=== PATIENT | male | born 1970 | race Caucasian/White ===

== ENCOUNTER 2021-04-10 21:58 | Emergency (ER) | payer MEDICARE, MEDICAID, SELFPAY ==
[2021-04-10 21:59] VITALS: BP 136/99; PULSE 80; RESP 16; TEMP 36.7; O2SAT 97; BMI 41.0
[2021-04-10 22:03] VITALS: BP 136/99; PULSE 77; RESP 16; O2SAT 97
--- NOTE | 2021-04-10 22:35 | RAD_ITS ---
STUDY: X-RAY - PELVIS AND LEFT HIP REASON FOR EXAM: Male, 50 years old. Pain TECHNIQUE: 3 views of the pelvis and hip. COMPARISON: None. FINDINGS: There is a non-specific bowel gas pattern. Normal visualized soft tissue structures. Normal bilateral iliac wings, sacroiliac joints and visualized sacrum. Normal bilateral superior and inferior pubic rami. Normal pubic symphysis. Normal bilateral ischial tuberosities. Normal visualized femoral head. Normal acetabulum. Normal hip joint. RAD/HIP, UNI W/ Pelvis 2-3 Views IMPRESSION: Normal x-ray examination of the pelvis and hip. Electronically Signed: Clifton Lu DO at 22:51 EST Tel , Service support ,
--- NOTE | 2021-04-10 23:00 | EKG12_ITS ---
Test Reason : DYSRHYTHMIA Blood Pressure : / mmHG Vent. Rate : 075 BPM Atrial Rate : 075 BPM P-R Int : 170 ms QRS Dur : 130 ms QT Int : 412 ms P-R-T Axes : 034 -84 078 degrees QTc Int : 460 ms Atrial-sensed ventricular-paced rhythm Biventricular pacemaker detected Abnormal ECG Confirmed by MARY KAY URIARTE, TREVIN ([id number]), map editor YULISA JERONIMO ([id number]) on 04/12/2021 10:17:33 AM Referred By: JOSH Confirmed By:TREVIN MUÑIZ MD
--- NOTE | 2021-04-10 23:00 | CT_ITS ---
STUDY: CT BRAIN WITHOUT CONTRAST REASON FOR EXAM: Male, 50 years old. trauma RADIATION DOSAGE (If Supplied By Facility): CTDIvol = ( 44.99 ) mGy, DLP = ( 914.22 ) mGycm TECHNIQUE: Transaxial CT imaging of the brain was performed without administration of intravenous contrast material. Individualized dose optimization techniques were used for this CT. COMPARISON: No relevant priors. FINDINGS: Normal soft tissue structures. Normal calvarium. Normal size ventricles and extra-axial spaces for the patient''s age. Normal white matter tracts of the cerebral hemispheres. Normal basal ganglia and thalami. Normal brainstem. Normal cerebellum. There is no intracranial hemorrhage. There are no findings of an acute ischemic infarction. Normal visualized paranasal sinuses. Posterior fossa arachnoid cyst CT/Brain/Head without Contrast IMPRESSION: Normal unenhanced CT scan of the brain. Posterior fossa arachnoid cyst Electronically Signed: Clifton Lu DO at 0:00 EST Tel , Service support ,
--- NOTE | 2021-04-10 23:00 | CT_ITS ---
STUDY: CT CERVICAL SPINE WITHOUT CONTRAST REASON FOR EXAM: Male, 50 years old. neck pain RADIATION DOSAGE (If Supplied By Facility): CTDIvol = ( 31.01 ) mGy, DLP = ( 602.12 ) mGycm TECHNIQUE: High resolution transaxial imaging was performed without contrast material. Sagittal and coronal images were reconstructed. Individualized dose optimization techniques were used for this CT. COMPARISON: None FINDINGS: Normal craniovertebral junction. Normal anterior atlantoaxial articulation. Normal odontoid process. Normal cervical lordosis. Normal vertebral bodies and posterior osseous elements. No acute fracture or listhesis. [id number] multilevel degenerative disease. No critical stenosis Normal visualized soft tissue structures. CT/Spine Cervical without Contras IMPRESSION: Multilevel degenerative changes, as described above. Electronically Signed: Clifton Lu DO at 0:01 EST Tel , Service support ,
--- NOTE | 2021-04-10 23:00 | RAD_ITS ---
STUDY: X-RAY CHEST REASON FOR EXAM: Male, 50 years old. chest pain TECHNIQUE: Single AP portable view of the chest. COMPARISON: None. FINDINGS: Left chest wall pacer device The lungs are clear and expanded. There is no demonstrated pleural abnormality. Normal size heart. Normal mediastinum and clive. Normal visualized pulmonary arteries. Normal visualized aortic arch and descending thoracic aorta. Normal visualized thoracic spine. Normal visualized ribs, clavicles, and shoulders. There is no demonstrated abnormality of the visualized soft tissue structures of the upper abdomen. RAD/Chest 1 View (Portable) IMPRESSION: Normal x-ray examination of the chest. Electronically Signed: Clifton Lu DO at 23:58 EST Tel , Service support ,
[2021-04-10 23:37] LABS: Absolute Lymphocyte Count 1.18 X10^3/uL (0.83-4.51); Basophil# 0.03 X10^3/uL; Basophil% 0.5 % (0-1); Eosinophil# 0.29 X10^3/uL; Eosinophils% 4.7 % (0-5); Hematocrit 37.5 % (40-54); Hemoglobin 12.4 g/dL (13.0-16.5); Lymphocyte # 1.18 X10^3/ul (0.83-4.51); Mean Corp Hgb Conc 33.1 g/dL (32-36); Mean Corpuscular Hgb 27.3 pg (27.0-32.0); Mean Corpuscular Volume 82.4 fL (80-94); Mean Platelet Vol. 11.3 fl (6.2-12.0); Monocyte# 0.62 X10^3/uL; NRBC Flagged by Analyzer 0 % (0-5); Neutrophil # 4.01 X10^3/uL (2.7-7.7); Neutrophil % 64.7 % (47-70); Platelet Count 152 K/mm3 (150-450); RBC Distribution Width CV 12.6 % (11.6-14.6); Red Blood Count 4.55 M/mm3 (4.6-6.2); White Blood Count 6.2 K/mm3 (4.4-11.0)
[2021-04-10 23:57] LABS: Anion Gap 7 (5-15); BUN 21 mg/dL (7-18); BUN/Creat Ratio 17.8 RATIO (10-20); Calcium,Total 9.5 mg/dL (8.5-10.1); Chloride 103 mmol/L (98-107); Creatinine, Serum 1.18 mg/dL (0.70-1.30); EST Glomerular Filtration Rate 69 mL/min (>60); Est Glom Filt Rate - Afr Amer 83 mL/min (>60); Estimated Creatinine Clearance 74.06 ml/min; Glucose 151 mg/dL (74-106); Potassium 4.1 mmol/L (3.5-5.1); Sodium Level 137 mmol/L (136-145); Troponin-I HS 82 pg/mL (3.0-78.0)
--- NOTE | 2021-04-11 01:03 | EX.ED.DYSGE1 ---
HPI History of Present Illness Chief Complaint: Fall Narrative Narrative: 50-year-old male presenting after a mechanical fall. He states that he was trying to move some furniture and while moving it fell backwards onto his right hip and states that he injured his right hip. Since that time he developed chest pain which was 10 of 10 and felt like pressure and is now come down to a 5 of 10. He does not want anything for pain. Patient is describing neck discomfort as well as paresthesias into the upper and lower extremity on the left arm and leg. He states this is new since he fell. He denies hitting his head. The only thing that he hit was his right hip. Patient was otherwise well prior to this. He does not have dyspnea. He is not had a fever or chills. He does not have a headache. PFSH PFSH Medical History Atrial fibrillation COPD (chronic obstructive pulmonary disease) Diabetes Hyperlipidemia Hypertension Pacemaker Seizures Smoker Home Medications aspirin 81 mg PO DAILY 04/10/21 [History Last Taken Unknown] insulin degludec [Tresiba FlexTouch U-100] 64 unit SUBCUT BID 04/10/21 [History Last Taken Unknown] levetiracetam 500 mg PO DAILY 04/10/21 [History Last Taken Unknown] lisinopril 10 mg PO DAILY 04/10/21 [History Last Taken Unknown] metformin 500 mg PO DAILY 04/10/21 [History Last Taken Unknown] metoprolol tartrate 25 mg PO DAILY 04/10/21 [History Last Taken Unknown] mexiletine 300 mg PO Q8H 04/10/21 [History Last Taken Unknown] omeprazole 20 mg PO DAILY 04/10/21 [History Last Taken Unknown] rosuvastatin 40 mg PO DAILY 04/10/21 [History Last Taken Unknown] Allergy/AdvReac Type Severity Reaction Status Date / Time No Known Allergies Allergy Verified 04/10/21 22:09 Surgical History History of cochlear implant History of orthopedic surgery Social History Smoking Status: Current every day smoker tobacco type: cigarettes ROS ROS ED Constitutional Constitutional ED: Denies chills or fever(s) Eyes Eyes: Denies blurry vision or diplopia ENT ENT ED: Denies rhinorrhea or sore throat Cardiovascular Cardiovascular: Denies chest pain or palpitations Respiratory/Chest Respiratory/Chest: Denies cough, dyspnea or sputum Gastrointestinal Gastrointestinal: Denies abdominal pain, nausea or vomiting Genitourinary Genitourinary ED: Denies dysuria or hematuria Musculoskeletal Musculoskeletal: Reports neck pain and other Details: Right hip pain Neurologic Neurologic: Reports paresthesias LUE and LLE Psychiatric Psychiatric: Denies anxiety or depression EXAM Physical Exam Const Vital Signs: 04/10/21 21:59 04/10/21 22:03 04/10/21 23:22 Temperature 98.0 F Temperature Source Temporal Pulse Rate 80 77 Respiratory Rate 16 16 Respiratory Effort Normal Respiratory Depth Normal Respiratory Pattern Normal Blood Pressure 136/99 H 136/99 H Blood Pressure Mean 111 111 Pulse Ox 97 97 Oxygen Delivery Method Room Air Room Air Room Air Positive well nourished General Appearance ED: NAD HEENT Reports moist mucous membranes Negative for trauma Eyes PERRL and EOMs intact bilaterally Neck Neck Narrative: Tenderness to palpation the left cervical paraspinal musculature. No midline spinal deformity or step-off. Resp normal respiratory effort and clear to auscultation bilaterally Cardio regular rate and regular rhythm GI normal to inspection, nondistended, normoactive bowel sounds Extremity Extremity Narrative: Tenderness to palpation over right hip Neuro oriented x3 and CN's II-XII intact bilaterally Neuro Narrative: Decreased sensation to light touch in the left upper and left lower extremity diffusely. No injuries noted. No bony tenderness. No bruising. Sensorium / Orientation: alert Psych mental status grossly normal Skin no rashes or lesions noted and no wounds MDM MDM MDM Narrative Medical decision making narrative: Patient initially presenting for for a fall which is mechanical injuring his right hip. X-ray of the right hip on my interpretation shows no acute fracture or subluxation. Patient now complaining of chest pressure as well as paresthesias in the left upper and left lower extremity. He denies any head injury. He states the only part of his body that hit the ground was his right hip. He does describe some left paraspinal musculature pain. He has no midline spinal deformities or step-offs. He has no signs of head trauma. Patient is able to pull himself forward with the left arm to allow me to auscultate his lungs. He is able to lift his left leg off the bed as well. I did obtain a CT of the brain which is negative for acute findings but does show an arachnoid cyst. CT of the cervical spine shows degenerative changes but no acute fractures. Chest x-ray my interpretation shows no acute cardiopulmonary process. Patient CBC shows his white blood count of 6.2, hemoglobin 12.4, hematocrit 37.5, platelets 152. Renal function is normal. Electrolytes are normal. High-sensitivity troponin initially is 82. EKG on my interpretation is a atrial sensed ventricular paced rhythm with a ventricular to 75 bpm. There are no signs of ischemic changes. Delta troponin is 94 and therefore not significantly changed. I feel at this point the patient is stable to be discharged home. Impression: 1. Chemical fall 2. Right hip contusion 3. Chest pain noncardiac 4. Paresthesia Lab Data Labs: Laboratory Results - last 24 hr 04/10/21 04/10/21 04/11/21 23:19 23:19 01:20 WBC 6.2 RBC 4.55 L Hgb 12.4 L Hct 37.5 L MCV 82.4 MCH 27.3 MCHC 33.1 RDW Std Deviation 38.0 RDW Coeff of Lluvia 12.6 Plt Count 152 MPV 11.3 Immature Gran % (Auto) 1.100 H Neut % (Auto) 64.7 Lymph % (Auto) 19.0 [place] % (Auto) 10.0 Eos % (Auto) 4.7 Baso % (Auto) 0.5 Absolute Neuts (auto) 4.0 Absolute Lymphs (auto) 1.18 Nucleated RBC % 0 Sodium 137 Potassium 4.1 Chloride 103 Carbon Dioxide 27.0 Anion Gap 7 BUN 21 H Creatinine 1.18 Estim Creat Clear Calc 74.06 Est GFR (MDRD) Af Amer 83 Est GFR (MDRD) Non-Af 69 BUN/Creatinine Ratio 17.8 Glucose 151 H Calcium 9.5 Troponin I High Sens 82 H 94 H Radiography Diagnostic Testing: Clinical Impression(s) from Imaging Studies Hip/Pelvis X-Ray 04/10/21 22:35 IMPRESSION: Normal x-ray examination of the pelvis and hip. Electronically Signed: Clifton Lu DO at 22:51 EST Tel , Service support , Brain CT 04/10/21 23:00 IMPRESSION: Normal unenhanced CT scan of the brain. Posterior fossa arachnoid cyst Electronically Signed: Clifton Lu DO at 0:00 EST Tel , Service support , Cervical Spine CT 04/10/21 23:00 IMPRESSION: Multilevel degenerative changes, as described above. Electronically Signed: Clifton Lu at 0:01 EST Tel , Service support , Chest X-Ray 04/10/21 23:00 IMPRESSION: Normal x-ray examination of the chest. Electronically Signed: Clifton Lu DO at 23:58 EST Tel , Service support , Discharge Plan Triage Chief Complaint: Fall ED Provider: Dominic Bray Dx/Rx/DC Orders Instructions: ED Mechanical Fall, ED Hip Contusion, ED Neck Sprain or Strain Prescriptions: No Action mexiletine 150 mg Capsule 300 mg PO Q8H RF: 0 lisinopril 10 mg Tablet 10 mg PO DAILY RF: 0 metformin 500 mg Tablet Extended Release 24 Hr 500 mg PO DAILY RF: 0 rosuvastatin 40 mg Tablet 40 mg PO DAILY RF: 0 metoprolol tartrate 25 mg Tablet 25 mg PO DAILY RF: 0 omeprazole 20 mg Tablet,Delayed Release (Dr/Ec) 20 mg PO DAILY RF: 0 levetiracetam 500 mg Tablet Extended Release 24 Hr 500 mg PO DAILY RF: 0 Tresiba FlexTouch U-100 100 unit/mL (3 mL) Insulin Pen 64 unit SUBCUT BID RF: 0 aspirin 81 mg Capsule 81 mg PO DAILY RF: 0 Primary Care Provider: Care Physician,No Primary Referrals: Care Physician,No Primary [Primary Care Provider] - Disposition Disposition: Home, Self Care
[2021-04-11 01:56] LABS: Troponin-I HS 94 pg/mL (3.0-78.0)
[2021-04-11 02:35] VITALS: BP 131/82; PULSE 72; RESP 18; O2SAT 98
== END 2021-04-11 02:39 | disposition home or self-care (01) ==
PROVIDERS: Emergency Provider Student in an Organized Health Care Education/Training Program
DX: S70.01XA Contusion of right hip, initial encounter (principal); R07.89 Other chest pain; R20.2 Paresthesia of skin; F17.210 Nicotine dependence, cigarettes, uncomplicated; E11.9 Type 2 diabetes mellitus without complications; E78.5 Hyperlipidemia, unspecified; I10 Essential (primary) hypertension; I48.91 Unspecified atrial fibrillation; Z95.0 Presence of cardiac pacemaker; Z79.899 Other long term (current) drug therapy; Z79.4 Long term (current) use of insulin; W19.XXXA Unspecified fall, initial encounter
CPT/HCPCS: 70450; 71045; 72125; 73502; 80048; 84484; 85025; 93005; 99284; A4216